=== PATIENT | male | born 1985 | race Two or more races ===

== ENCOUNTER 2017-10-20 13:00 | Emergency (ER) | payer OTHER ==
--- NOTE | 2017-10-20 13:42 | EDPHY ---
H & P Stated Complaint: headache,blurry vision,numbness left hand which has resolved Time Seen by Provider: 10/20/17 13:08 HPI/ROS: CHIEF COMPLAINT: Headache History by patient HISTORY OF PRESENT ILLNESS: 32-year-old man with no significant past medical history presents complaining of acute onset of change in his vision which he describes as a blurry dry creek in the middle of his visual field which then seemed to with crosses field. This began 30 min to an hour after he worked out at the gym. It lasted 15-30 minutes and then resolved. It was then followed by a feeling of numbness and tingling in his left hand and on the right side of his face. He said he was holding the plate and then he realized that he could feel it properly. He also said it felt as if his hand was asleep. This numbness and tingling sensation extended in a glove-like pattern to his mid forearm. The symptoms on his face involve the right side of his nose and his right upper cheek. The symptoms in his hand and face lasted again another 15 min or so and then resolves and he noticed a dull mild right frontal temporal headache. He denies any difficulty speaking or swallowing. There is no associated confusion. There is no associated double vision. There was no focal weakness although he felt generally tired and weak all over. There is no associated photophobia or phonophobia. He has had no nausea or vomiting. All of his symptoms resolved except for a very slight persistent focal headache. There is no associated fever. He has been well recently. He had no difficulty working out at the gym. He has not taken anything for the symptoms. Patient and his called their telemedicine service who recommended he come to the ER for evaluation. Patient states has history of a similar episode that also involved his left hand and maybe the right side of his face but was not associated with headache for which she was seen and evaluated with some kind of brain imaging and EEG 3 years ago in [place]. He was told at that time that it was stress related problem similar to a migraine. There is no family history of migraines. His father had a bypass around age 60. There is no family history of blood clotting. Patient quit smoking tobacco and marijuana 10 years ago. His cholesterol is unknown. He has no prior history of hypertension. REVIEW OF SYSTEMS: As in HPI, and all other systems reviewed and are negative Source: Patient, Family - Personal History Current Tetanus Diphtheria and Acellular Pertussis (TDAP): Unsure - Medical/Surgical History Hx Asthma: No Hx Chronic Respiratory Disease: No Hx Diabetes: No Hx Cardiac Disease: No Hx Renal Disease: No Hx Cirrhosis: No Hx Alcoholism: No Hx HIV/AIDS: No Hx Splenectomy or Spleen Trauma: No Other PMH: bronchitis - Social History Smoking Status: Former smoker - Physical Exam Exam: General Appearance: Alert, comfortable, nontoxic. Head: normocephalic, atraumatic Eyes: Pupils equal and round, reactive to light, extraocular movements intact, no nystagmus no pallor or injection. Mouth: Mucous membranes moist. Respiratory: Normal, effort, lungs are clear to auscultation. No wheezes, rales or rhonchi. Cardiovascular: Regular rate and rhythm. S1, S2, no murmurs, gallops or rubs appreciated Gastrointestinal: Abdomen is soft and nontender, no masses, bowel sounds normal. Back: No CVA tenderness, no bony tenderness Neurological: Awake, alert and oriented x 3, cranial nerves 2-12 are intact, no pronator drift, normal gait, heel to andre intact, [id number] intact, strength is 5/5 and equal bilaterally upper and lower extremities, sensation is intact and equal throughout including face and upper extremities. Skin: Warm and dry, no rashes. Musculoskeletal: No deformities or tenderness. Extremities: full range of motion, no edema, DP2+ bilat Psychiatric: Patient has normal affect, there is no agitation. Constitutional: Initial Vital Signs Temperature (C) 36.5 C 10/20/17 13:18 Heart Rate 84 10/20/17 13:18 Respiratory Rate 16 10/20/17 13:18 Blood Pressure 153/89 H 10/20/17 13:18 O2 Sat (%) 95 10/20/17 13:18 O2 Delivery Mode Room Air Allergies/Adverse Reactions: erythromycin base Allergy (Verified 10/20/17 13:18) Home Medications: Medication Instructions Recorded NK [No Known Home Meds] 10/20/17 Medical Decision Making ED Course/Re-evaluation: 32-year-old otherwise healthy man presents complaining of acute onset of visual symptoms followed by focal numbness and tingling and then onset of mild headache. Patient has a completely normal neurologic exam here. Patient had a similar episode for which had extensive workup several years ago. This is all consistent with a migraine type syndrome given the sequence of events and his normal neurologic exam now. At this point there is no indication for imaging given his normal neurologic exam. Patient declined pain medicine for her headache as he said it was quite mild. I do recommend follow up with neurologist and how an outpatient MRI might be indicated. I discussed this with the patient and his and they understand and are agreeable to this plan. Departure - Departure Disposition: Home, Routine, Self-Care Clinical Impression: Headache Qualifiers: Headache type: other headache syndrome Qualified Code(s): G44.89 - Other headache syndrome Condition: Good Instructions: Migraine Headache (ED) Additional Instructions: You were seen by Dr. Nicol Don today. Your symptoms today are consistent with a migraine syndrome. Rest for the next 24 hr. He may take Tylenol or ibuprofen if he needed for your headache. Please follow up with Neurology, . Return for any worsening or new concerns, including but not limited to vomiting , uncontrolled pain, new focal numbness or weakness, confusion or other concerning symptoms.. Referrals: NONE *PRIMARY CARE P,. [Primary Care Provider] - As per Instructions Alexx Kahn DO [Doctor of Osteopathy] - As per Instructions
[2017-10-20 13:52] VITALS: BP 143/71
== END 2017-10-20 13:52 | disposition home or self-care (01) ==
LOC: CED 13:00
DX: G44.89 Other headache syndrome (principal); Z87.891 Personal history of nicotine dependence